=== PATIENT | female | born 1970 | race Caucasian/White ===

== ENCOUNTER 2018-01-17 14:40 | Inpatient (IN) | payer OTHER ==
[~2018-01-17] VITALS: Ht 162.6 cm; Wt 92.5 kg
--- NOTE | ~2018-01-17 | EKG ---
[facility] [place] [address] ELECTROCARDIOGRAM REPORT Name: RUPALI STONE Room #: REG Kellie#: [id number] Admission: 01/17/18 Attend Phys: Discharge: Date of : 74 Report #: [id number] THIS REPORT FOR: //name// [facility] ED Test Date: 2018-01-17 Test Time: 14:46:11 Pat Name: RUPALI STONE Department: Room: Gender: F Grill Associate: MICA : [id number] Requested By: Luis Boss Order Number: [id number] MD: Param Busby Measurements Intervals [place] Rate: 67 P: 9 OH: 154 QRS: -15 QRSD: 94 T: 24 QT: 384 QTc: 406 Interpretive Statements Sinus rhythm RSR' in V1 or V2, probably normal variant Borderline T abnormalities, anterior leads No previous ECG available for comparison Electronically Signed On 01-17-2018 16:12:30 NOC TECHNICIAN by Param Busby [email or web address] <ELECTRONICALLY SIGNED> By: Param Busby MD, [facility] 01/17/18 1612 1446 1446 Param Busby MD, FACC /EPI
--- NOTE | ~2018-01-17 | HC ---
[facility] [place] [address] CONSULTATION Name: RUPALI STONE Room #: [facility] M.R.#: [id number] Admission: 01/17/18 Attend Phys: Dante Jackson MD Discharge: 01/18/18 Date of : 74 Report #: [id number] THIS REPORT FOR: //name// CC: Dante Jackson NO PCP DATE OF SERVICE: 01/18/2018 CARDIOLOGY CONSULTATION REASON FOR CONSULTATION: SVT. HISTORY OF PRESENT ILLNESS: The patient is a 47-year-old with no significant past medical history other than some prediabetes. She presented after having an episode of weakness, nausea, vomiting, feelings of hypoglycemia and lightheadedness. She may have had some palpitations as well. The patient speaks Spanish and I was able to communicate to her in Amharic and also, she had a family member who could translate Slovak to Amharic as well. She denies any chest pain or chest tightness. She denies PND or orthopnea. She denies syncopal episodes. PAST MEDICAL HISTORY: As mentioned above. SOCIAL HISTORY: She does not smoke. FAMILY HISTORY: Noncontributory. ALLERGIES: INCLUDE TRAMADOL AND METOCLOPRAMIDE. REVIEW OF SYSTEMS: GENERAL: No fevers or chills. HEENT: No blurred vision. CARDIOVASCULAR: As above. PULMONARY: No productive cough. GASTROINTESTINAL: She had some nausea and vomiting. GENITOURINARY: She had no dysuria. MUSCULOSKELETAL: No myalgias or arthralgias. ENDOCRINE: No heat or cold intolerance. PHYSICAL EXAMINATION: VITAL SIGNS: Temperature is 36.3, pulse 67, respirations 14, blood pressure 118/80, sats 96%. GENERAL: She is in no acute distress, alert and oriented x 3. HEENT: Oropharynx is clear. NECK: Supple, no thyromegaly. HEART: Regular rate and rhythm with no murmurs, rubs, gallops. [facility] [address] [place] [address] CONSULTATION Name: RUPALI STONE Room #: [facility].#: [id number] Admission: 01/17/18 Attend Phys: Dante Jackson MD Discharge: 01/18/18 Date of : 74 Report #: [id number] LUNGS: Clear to auscultation bilaterally. ABDOMEN: Soft, nontender, nondistended with no hepatosplenomegaly. EXTREMITIES: No clubbing, cyanosis, edema. NEUROLOGIC: Cranial nerves 2-12 are intact. LABORATORY DATA: White count 8.4, hemoglobin 14, platelets are 364. Chemistry: Sodium 138, potassium 3.3, BUN 12, creatinine 0.8. Troponins were negative. BNP was 331. test was normal. Her chest x-ray was normal. Her nuclear stress test showed no evidence of myocardial ischemia. She did have some tachycardia on this. It is hard to tell if this was just a sinus tachycardia versus an atrial tachycardia, maximum rates got up to 160s. There were no ischemic changes based on my evaluation of these EKGs. Her 12-lead EKG, I reviewed showed sinus rhythm, no evidence of manifest preexcitation. Her telemetry shows no significant arrhythmias. ASSESSMENT: In summary, the patient is a 47-year-old who presents with nausea, vomiting and some palpitations. It is unclear what the etiology of her palpitations is. Her stress test, EKGs are not clearly a supraventricular tachycardia as there is no clear onset or offset. There were distinct P waves suggesting that this is likely sinus tachycardia. As such, I would not initiate any medications at this time. Fortunately, there was no evidence of ischemia on the nuclear portion of the study. I therefore recommended that she wear a campus monitor as an outpatient, which we will call her to have place next week and I will see her back in a month to review the findings. <ELECTRONICALLY SIGNED> By: Dell Srivastava MD 02/01/18 1752 1431 1950 Dell Srivastava MD /nt
[2018-01-17 14:58] VITALS: BP 139/97
[2018-01-17] MEDS ORDERED: GLUCOPHAGE XR500 MG PO (15:06)
[2018-01-17] MEDS ORDERED: ATENOLOL 25 MG25 M1 PO (15:07)
[2018-01-17] MEDS ORDERED: CRESTOR20 MG PO (15:08)
[2018-01-17 15:18] LABS: ABSOLUTE NEUTROPHILS 5.1 thou/uL (1.4-8.2); BASOPHILS 0.9 % (0.0-2.0); EOSINOPHILS 0.6 % (0.0-3.0); HEMATOCRIT 40.9 % (37.0-47.0); LYMPHOCYTES 30.5 % (24.0-44.0); MCH 30.1 pg (26.0-34.0); MCHC 34.3 g/dL (28.0-37.0); MCV 87.8 fL (80.0-100.0); MONOCYTES 7.4 % (1.0-8.0); PLATELET COUNT 364 thou/uL (150-400); POLYS 60.6 % (36.0-66.0); RBC 4.66 mil/uL (4.20-5.00); RDW 14.5 % (10.5-14.5); WBC 8.4 thou/uL (4.0-11.0)
[2018-01-17 15:33] LABS: ANION GAP 11 mmol/L (7-16); BUN 12 mg/dL (7-18); CALCIUM 9.7 mg/dL (8.5-10.1); CHLORIDE 100 mmol/L (98-107); CO2 27 mmol/L (21-32); CREATININE 0.8 mg/dL (0.6-1.0); GLUCOSE 104 mg/dL (74-106); POTASSIUM 3.3 mmol/L (3.5-5.1); SODIUM 138 mmol/L (136-145)
[2018-01-17 15:41] LABS: ALBUMIN 3.9 g/dL (3.4-5.0); SGOT 21 U/L (15-37); SGPT 29 U/L (30-65); TOTAL BILIRUBIN 0.6 mg/dL (<0.1-1.0); TOTAL PROTEIN 7.9 g/dL (6.4-8.2); TROPONIN-I < 0.04 ng/mL (<0.06)
[2018-01-17 17:24] VITALS: BP 131/80
[2018-01-17 18:00] VITALS: BP 128/86
[2018-01-17 19:36] VITALS: BP 106/40; BP 129/89
[2018-01-18 04:45] VITALS: BP 118/80
[2018-01-18 14:15] VITALS: BP 148/87
[2018-01-18 14:45] VITALS: BP 118/80
[2018-01-18] MEDS ORDERED: XANAX 0.25 MG0.25 MG PO (15:20)
== END 2018-01-18 15:40 | disposition home or self-care (01) | DRG 313 ==
LOC: ER 14:40 → EROBS 17:00 → 4N 17:00
PROVIDERS: Emergency Medicine
DX: R07.89 Other chest pain (principal); K21.9 Gastro-esophageal reflux disease without esophagitis; R73.03 Prediabetes; I10 Essential (primary) hypertension; Z88.8 Allergy status to other drugs, medicaments and biological substances
CPT/HCPCS: 10790